=== PATIENT | female | born 1975 | race Two or more races ===

== ENCOUNTER 2023-07-16 11:42 | Emergency (ER) | payer MEDICAID ==
[~2023-07-16] VITALS: Ht 157.5 cm; Wt 65.3 kg
[2023-07-16 11:52] VITALS: BP_SYST 115; PULSE 85; RESP 20; TEMP 98.3; O2SAT 98
[2023-07-16] MEDS ORDERED: CLIN-142 PO (13:04)
[2023-07-16] MEDS ORDERED: IBUP-1969 PO (13:04)
== END 2023-07-16 13:13 | disposition home or self-care (01) ==
LOC: SED 11:42
DX: L03.011 Cellulitis of right finger (principal); Z79.899 Other long term (current) drug therapy
CPT/HCPCS: 73140-TC; 99283

== ENCOUNTER 2023-07-22 15:46 | Emergency (ER) | payer MEDICAID ==
[~2023-07-22] VITALS: Ht 157.5 cm; Wt 65.8 kg
[~2023-07-22 15:46] MED LIST: CLIN-142 PO; IBUP-1969 PO
[2023-07-22 15:55] VITALS: BP_SYST 120; PULSE 72; RESP 16; TEMP 97.7; O2SAT 96
[2023-07-22] MEDS ORDERED: CEPH-548 PO (16:33)
[2023-07-22] MEDS ORDERED: BACI15OI13 TP (16:33)
[2023-07-22 17:01] VITALS: BP_SYST 120; PULSE 72; RESP 16; TEMP 97.7; O2SAT 96
== END 2023-07-22 16:58 | disposition home or self-care (01) ==
LOC: SED 15:46
DX: L03.011 Cellulitis of right finger (principal); Z79.899 Other long term (current) drug therapy
CPT/HCPCS: 81025; 99283

== ENCOUNTER 2023-11-05 12:32 | Emergency (ER) | payer MEDICAID ==
[~2023-11-05] VITALS: Ht 157.5 cm; Wt 64.0 kg
[~2023-11-05 12:32] MED LIST changes: +BACI15OI13 TP; +CEPH-548 PO
[2023-11-05 12:35] VITALS: BP_SYST 118; PULSE 76; RESP 18; TEMP 97.7; O2SAT 98
== END 2023-11-05 13:05 | disposition home or self-care (01) ==
LOC: SED 12:32
DX: M79.89 Other specified soft tissue disorders (principal); Z79.899 Other long term (current) drug therapy
CPT/HCPCS: 99281